=== PATIENT | male | born 1970 | race African-American/Black ===

== ENCOUNTER → 2016-05-02 | Outpatient (CLI) | payer OTHER ==
--- NOTE | 2016-05-04 06:50 | SLEEPCENT ---
DATE OF PROCEDURE: 05/02/2016 REFERRED BY: Sheila Bains Nocturnal polysomnography was performed for the titration of pressure therapy in this patient with obstructive sleep apnea syndrome, Apnea-Hypopnea index of 6.7. For testing, patient was fit with a [employer] Quattro full face mask of medium size , 4 cm of water pressure were applied to the circuit and the lights were extinguished. 8 hours and 32 minutes of data were reviewed. There were 456 minutes of sleep identified. Sleep latency was short at 2.5 minutes. REM latency was normal at 103 minutes. Sleep architecture showed some persistence of fragmentation but 3 rapid eye movement (REM) periods were encountered. Overall sleep efficiency was 90.5%. Patient's EKG showed a sinus rhythm with an average heart rate of 58 beats per minute. EEG showed normal wave forms for wake and sleep. Respiratory events were best palliated with CPAP at a pressure of +7. Mask tolerance was reasonably good. Limb activity identified on this study was persistent. A few trains of events with an arousal index of 8.4. IMPRESSION: Obstructive sleep apnea syndrome (G47.33). RECOMMENDATION: Nightly use of pressure therapy 7 cm of water. edited: 05/07/2016 0840 tkdenis [email or web address]
== END | disposition home or self-care (01) ==
LOC: M SLEEP 19:16
PROVIDERS: ATTEND Nurse Practitioner Adult Health
DX: G47.33 Obstructive sleep apnea (adult) (pediatric) (principal)